=== PATIENT | female | born 1980 | race Caucasian/White ===

== ENCOUNTER 2018-12-22 19:27 | Emergency (ER) | payer OTHER ==
[2018-12-22] MEDS ORDERED: NA CHLORIDE 0.9% 1,000 ML ONE (20:28)
[2018-12-22] MEDS ORDERED: HYDROCODONE/CHLORPHEN 5 ML/OSYR ONE (21:02)
[2018-12-22 21:08] LABS: Absolute Lymphocytes (CBC) 3.1 K/uL (0.7-4.9); Basophils % 0.8 % (0-1.3); Hematocrit 40.7 % (36.0-45.0); Lymphocytes % 41.7 % (15.3-44.8); MPV 8.7 fL (7.6-11.3); RBC Red Blood Cell Count 4.56 M/uL (3.86-4.86)
[2018-12-22 21:17] LABS: Potassium 3.9 mmol/L (3.5-5.1)
[2018-12-22] MEDS ORDERED: DIAZEPAM 2 MG TABLET ONE (21:53)
--- NOTE | 2018-12-22 22:07 | ER ---
Nurse's Notes [facility] Name: Aditi Bradford Age: 38 yrs Sex: Female : 1980 Arrival Date: 12/22/2018 Time: 19:32 Bed 13 Private MD: Alvaro Kaiser Diagnosis: Cough;Pneumonia, unspecified organism Presentation: 12/22 19:52 Presenting complaint: Patient states: Reports she started having flu symptoms thrusday ea of last week, was seen at [facility] was diagnosed with PNA and was given levaquin, pt reports she improved then last night she felt worse. Transition of care: patient was not received from another setting of care. Onset of symptoms was December 22, 2018. Risk Assessment: Do you want to hurt yourself or someone else? Patient reports no desire to harm self or others. Initial Sepsis Screen: Does the patient meet any 2 criteria? HR > 90 bpm. Does the patient have a suspected source of infection? Yes: Productive cough/pneumonia. Care prior to arrival: Medication(s) given: ibuprofen at 5 pm. 19:52 Method Of Arrival: Ambulatory ea 19:52 Acuity: MIGUEL ANGEL 3 ea DIRECTOR OF STRATEGIC ALLIANCES: 19:54 LMP N/A - Hysterectomy ea Historical: - Allergies: 19:56 Demerol; ea - Home Meds: 19:56 None [Active]; ea - PMHx: 19:56 None; ea - PSHx: 19:56 Hysterectomy; corinne valenteck; ea - Immunization history:: Adult Immunizations up to date. - Social history:: Smoking status: Patient/guardian denies using tobacco. - Ebola Screening: : No symptoms or risks identified at this time. Screenin:56 Abuse screen: Denies threats or abuse. Nutritional screening: No deficits noted. ea Tuberculosis screening: No symptoms or risk factors identified. Fall Risk None identified. Assessment: 19:57 General: Appears in no apparent distress. comfortable, Behavior is calm, cooperative, ca1 appropriate for age. Pain: Complains of pain in scalp and neck Pain does not radiate. Pain currently is 7 out of 10 on a pain scale. Pain began 1 day ago. Aggravated by repositioning. Neuro: Level of Consciousness is awake, alert, obeys commands, Oriented to person, place, time, situation, Appropriate for age. Cardiovascular: Heart tones S1 S2 present Capillary refill < 3 seconds Patient's skin is warm and dry. Respiratory: Reports cough that is productive, since a week ago Airway is patent Respiratory effort is even, unlabored, Respiratory pattern is regular, symmetrical, Sputum is yellow Breath sounds are clear bilaterally. GI: Abdomen is round non-distended, Bowel sounds present X 4 quads. Abd is soft and non tender X 4 quads. : No deficits noted. No signs and/or symptoms were reported regarding the genitourinary system. EENT: No deficits noted. No signs and/or symptoms were reported regarding the EENT system. Derm: Skin is intact, is healthy with good turgor, Skin is pink, warm \T\ dry. Musculoskeletal: Circulation, motion, and sensation intact. Capillary refill < 3 seconds, Range of motion: intact in all extremities. 20:49 Reassessment: Patient appears in no apparent distress at this time. Patient is alert, ca1 oriented x 3, equal unlabored respirations, skin warm/dry/pink. 22:34 Reassessment: Patient and/or family updated on plan of care and expected duration. Pain ea level reassessed. Patient is alert, oriented x 3, equal unlabored respirations, skin warm/dry/pink. Discharge instruction given to patient, verbalized the understanding of instruction. Pt left ED ambulatory accompanied by family. Vital Signs: 19:54 BP 146 / 106; Pulse 118; Resp 20; Temp 98(TE); Pulse Ox 98% on R/A; Weight 95.25 kg; ea Height 5 ft. 7 in. (170.18 cm); 20:49 BP 107 / 54; Pulse 86; Resp 18 S; Pulse Ox 99% on R/A; ca1 21:08 BP 115 / 79; Pulse 81; Resp 19 S; Pulse Ox 100% on R/A; ca1 22:30 BP 112 / 65; Pulse 76; Resp 18; Temp 97.7; Pulse Ox 100% ; ea 19:54 Body Mass Index 32.89 (95.25 kg, 170.18 cm) ea ED Course: 19:32 Patient arrived in ED. es 19:33 Alvaro Kaiser MD is Private Physician. es 19:49 Lakisha Leo, RAN is Primary Nurse. ca1 19:54 Roxanna Amezcua FNP-C is [facility]. snw 19:54 Prnice Hagen MD is Attending Physician. snw 19:54 Triage completed. ea 19:56 Arm band placed on right wrist. Patient placed in an exam room, on a stretcher, on ea pulse oximetry. 19:56 Patient has correct armband on for positive identification. Bed in low position. Call ea light in reach. Side rails up X 1. 19:57 radiation monitor on. Pulse ox on. NIBP on. Warm blanket given. ca1 20:40 No provider procedures requiring assistance completed. Inserted saline lock: 20 gauge ca1 in right antecubital area, using aseptic technique. ,using aseptic technique. by Jaylon laboratory chemical assistant Blood collected. 20:40 Initial lab(s) drawn, by ED staff, sent to lab. First set of blood cultures drawn. ca1 21:30 Second set of blood cultures drawn by lab staff. ca1 22:05 Alvaro Kaisre MD is Referral Physician. snw 22:18 Louann Dinero, RAN is Primary Nurse. ea 22:30 IV discontinued, intact, bleeding controlled, No redness/swelling at site. Pressure ea dressing applied. Administered Medications: 20:40 Drug: NS 0.9% 1000 ml Route: IV; Rate: 1 bolus; Site: right antecubital; ca1 22:19 Follow up: Response: No adverse reaction; IV Status: Completed infusion; IV Intake: ea 1000ml 21:02 Drug: Tussionex Pennkinetic ER 5 ml Route: PO; ca1 22:19 Follow up: Response: No adverse reaction ea 22:19 Drug: Valium 2 mg Route: PO; ea 22:36 Follow up: Response: No adverse reaction; Pain is decreased ea Intake: 22:19 IV: 1000ml; Total: 1000ml. ea Outcome: 22:06 Discharge ordered by . snw 22:35 Discharged to home ambulatory, with family. ea 22:35 Condition: stable 22:35 Discharge instructions given to patient, Instructed on discharge instructions, follow up and referral plans. medication usage, Demonstrated understanding of instructions, follow-up care, medications, Prescriptions given X 2. 22:38 Patient left the ED. ea Signatures: Roxanna Amezcua, HARDBOARD GRINDER-C HARDBOARD GRINDER-Csnw Elva Coker Elena, RN RN Lakisha Borden RN RN ca1 Corrections: (The following items were deleted from the chart) 20:52 20:49 Pulse 86bpm; Resp 16bpm; Spontaneous; Pulse Ox 99% RA; ca1 ca1
--- NOTE | 2018-12-22 22:08 | EDPHYS ---
Physician Documentation [facility] Name: Aditi Bradford Age: 38 yrs Sex: Female : 1980 Arrival Date: 12/22/2018 Time: 19:32 Bed 13 Private MD: Alvaro Kaiser ED Physician Prince Hagen HPI: 12/22 21:11 This 38 yrs old Female presents to ER via Ambulatory with complaints of Neck snw Pain, <24hrs Old. 21:11 The patient or guardian reports dx with Pneumonia at [place] Tuesday12/16/18, felt a bit snw better by Tue and then began feeling terrible again. Pt using the Albuterol inhaler, taking her steroids and Levaquin. Arrives to ED with tachycardia. Onset: The symptoms/episode began/occurred gradually. Associated signs and symptoms: The patient has no apparent associated signs or symptoms. Severity of symptoms: At their worst the symptoms were moderate severe in the emergency department the symptoms are unchanged. It is unknown whether or not the patient has had similar symptoms in the past. as noted. STYLE ADVISOR: 19:54 LMP N/A - Hysterectomy ea Historical: - Allergies: 19:56 Demerol; ea - Home Meds: 19:56 None [Active]; ea - PMHx: 19:56 None; ea - PSHx: 19:56 Hysterectomy; tummy tuck; ea - Immunization history:: Adult Immunizations up to date. - Social history:: Smoking status: Patient/guardian denies using tobacco. - Ebola Screening: : No symptoms or risks identified at this time. ROS: 21:10 Constitutional: Negative for fever, chills, and weight loss, Eyes: Negative for injury, snw pain, redness, and discharge, ENT: Negative for injury, pain, and discharge, Neck: Negative for injury, pain, and swelling, Cardiovascular: Negative for chest pain, palpitations, and edema, Abdomen/GI: Negative for abdominal pain, nausea, vomiting, diarrhea, and constipation, Back: Negative for injury and pain, : Negative for injury, bleeding, discharge, and swelling, MS/Extremity: Negative for injury and deformity, Skin: Negative for injury, rash, and discoloration, Neuro: Negative for headache, weakness, numbness, tingling, and seizure, Psych: Negative for depression, anxiety, suicide ideation, homicidal ideation, and hallucinations. 21:10 Respiratory: Positive for cough. Exam: 21:09 Constitutional: This is a well developed, well nourished patient who is awake, alert, snw and in no acute distress. Head/Face: Normocephalic, atraumatic. Eyes: Pupils equal round and reactive to light, extra-ocular motions intact. Lids and lashes normal. Conjunctiva and sclera are non-icteric and not injected. Cornea within normal limits. Periorbital areas with no swelling, redness, or edema. ENT: Nares patent. No nasal discharge, no septal abnormalities noted. Tympanic membranes are normal and external auditory canals are clear. Oropharynx with no redness, swelling, or masses, exudates, or evidence of obstruction, uvula midline. Mucous membranes moist. Neck: Trachea midline, no thyromegaly or masses palpated, and no cervical lymphadenopathy. Supple, full range of motion without nuchal rigidity, or vertebral point tenderness. No Meningismus. Chest/axilla: Normal chest wall appearance and motion. Nontender with no deformity. No lesions are appreciated. Abdomen/GI: Soft, non-tender, with normal bowel sounds. No distension or tympany. No guarding or rebound. No evidence of tenderness throughout. Back: No spinal tenderness. No costovertebral tenderness. Full range of motion. Skin: Warm, dry with normal turgor. Normal color with no rashes, no lesions, and no evidence of cellulitis. MS/ Extremity: Pulses equal, no cyanosis. Neurovascular intact. Full, normal range of motion. Neuro: Awake and alert, GCS 15, oriented to person, place, time, and situation. Cranial nerves II-XII grossly intact. Motor strength 5/5 in all extremities. Sensory grossly intact. Cerebellar exam normal. Normal gait. Psych: Awake, alert, with orientation to person, place and time. Behavior, mood, and affect are within normal limits. 21:09 Cardiovascular: Rate: tachycardic, Rhythm: regular, Pulses: no pulse deficits are appreciated, Heart sounds: normal. 21:09 Respiratory: the patient does not display signs of respiratory distress, Respirations: normal, Breath sounds: are clear throughout, cough. Vital Signs: 19:54 BP 146 / 106; Pulse 118; Resp 20; Temp 98(TE); Pulse Ox 98% on R/A; Weight 95.25 kg; ea Height 5 ft. 7 in. (170.18 cm); 20:49 BP 107 / 54; Pulse 86; Resp 18 S; Pulse Ox 99% on R/A; ca1 21:08 BP 115 / 79; Pulse 81; Resp 19 S; Pulse Ox 100% on R/A; ca1 22:30 BP 112 / 65; Pulse 76; Resp 18; Temp 97.7; Pulse Ox 100% ; ea 19:54 Body Mass Index 32.89 (95.25 kg, 170.18 cm) ea MDM: 20:53 Patient medically screened. snw 22:07 Antibiotic administration: already on Levaquin. Data reviewed: vital signs, nurses snw notes. Data interpreted: Pulse oximetry: on room air is 100 %. Interpretation: normal. Counseling: I had a detailed discussion with the patient and/or guardian regarding: the historical points, exam findings, and any diagnostic results supporting the discharge/admit diagnosis, lab results, the need for outpatient follow up, to return to the emergency department if symptoms worsen or persist or if there are any questions or concerns that arise at home. Special discussion: Based on the history and exam findings, there is no indication for further emergent testing or inpatient evaluation. I discussed with the patient/guardian the need to see the primary care provider for further evaluation of the symptoms. 12/22 20:16 Order name: Basic Metabolic Panel; Complete Time: 21:19 snw 12/22 20:16 Order name: CBC with Diff; Complete Time: 21:11 snw 12/22 20:16 Order name: Blood Culture Adult (2) snw 12/22 21:10 Order name: Flu; Complete Time: 22:04 snw 12/22 20:16 Order name: Labs collected and sent; Complete Time: 20:48 snw Administered Medications: 20:40 Drug: NS 0.9% 1000 ml Route: IV; Rate: 1 bolus; Site: right antecubital; ca1 22:19 Follow up: Response: No adverse reaction; IV Status: Completed infusion; IV Intake: ea 1000ml 21:02 Drug: Tussionex Pennkinetic ER 5 ml Route: PO; ca1 22:19 Follow up: Response: No adverse reaction ea 22:19 Drug: Valium 2 mg Route: PO; ea 22:36 Follow up: Response: No adverse reaction; Pain is decreased ea Disposition: 12/22/18 22:06 Discharged to Home. Impression: Cough, Pneumonia, unspecified organism. - Condition is Stable. - Discharge Instructions: Community-Acquired Pneumonia, Adult, Cool Mist Vaporizer, Cough, Adult. - Prescriptions for Tessalon Perles 100 mg Oral Capsule - take 1 capsule by ORAL route every 8 hours As needed; 15 capsule. orphenadrine citrate 100 mg Oral Tablet Sustained Release - take 1 tablet by ORAL route 2 times per day As needed; 20 tablet. - Work release form, Medication Reconciliation Form, Thank You Letter, Antibiotic Education, Prescription Opioid Use form. - Follow up: Alvaro Kaiser MD; When: 2 - 3 days; Reason: Recheck today's complaints, Continuance of care, Re-evaluation by your physician. Follow up: Emergency Department; When: As needed; Reason: Worsening of condition. Addendum: 12/25/2018 21:57 Co-signature as Attending Physician, Prince Hagen MD I agree with the assessment and t w4 plan of care. Signatures: Dispatcher [employer] EDMS Roxanna Amezcua, OVERHEAD GARAGE DOOR HANGER-C OVERHEAD GARAGE DOOR HANGER-Csnw Louann Dinero RN RN ea Wadley, Terrence, MD MD tw4 Lakisha Leo RN RN ca1 Corrections: (The following items were deleted from the chart) 12/22 22:38 22:06 12/22/2018 22:06 Discharged to Home. Impression: Cough; Pneumonia, unspecified ea organism. Condition is Stable. Forms are Medication Reconciliation Form, Thank You Letter, Antibiotic Education, Prescription Opioid Use. Follow up: Alvaro Kaiser; When: 2 - 3 days; Reason: Recheck today's complaints, Continuance of care, Re-evaluation by your physician. Follow up: Emergency Department; When: As needed; Reason: Worsening of condition. snw
[2018-12-22 23:05] VITALS: O2SAT 100
[2018-12-22 23:07] VITALS: BP 112/65; TEMP 97.7
== END 2018-12-22 22:38 | disposition home or self-care (01) ==
LOC: ER 19:27
DX: J18.9 Pneumonia, unspecified organism (principal); R05 Cough; Z88.6 Allergy status to analgesic agent
CPT/HCPCS: 87040 ×2; 85025; 80048; 36415; 87804 ×2; J7030; 96360; 96361; 99284